=== PATIENT | male | born 1955 | race Caucasian/White ===

== ENCOUNTER 2020-05-06 10:43 | Outpatient (REF) | payer OTHER, SELFPAY | END 2020-05-06 10:44 | disposition home or self-care (01) | LOC: HO.LAB 10:43 | PROVIDERS: PCP Pediatrics; Visit Provider Internal Medicine | DX: Z20.828 Contact with and (suspected) exposure to other viral communicable diseases (principal) | CPT/HCPCS: 87635 ==